=== PATIENT | female | born 1995 | race African-American/Black ===

== ENCOUNTER 2016-12-23 22:44 | Emergency (ER) | payer SELFPAY ==
[~2016-12-23] VITALS: Ht 177.8 cm; Wt 159.0 kg
[2016-12-24 02:32] VITALS: BP 138/78
== END 2016-12-24 02:33 | disposition home or self-care (01) ==
LOC: EMS 22:47
DX: J03.90 Acute tonsillitis, unspecified (principal); F12.90 Cannabis use, unspecified, uncomplicated
CPT/HCPCS: 86308; 99284